=== PATIENT | female | born 2005 | race Caucasian/White ===

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

== ENCOUNTER 2024-06-04 11:38 | Emergency (ER) | payer MEDICAID, SELFPAY ==
--- NOTE | 2024-06-04 11:30 | ECG_ITS ---
[facility] Test Date: 2024-06-04 Pat Name: Crys Keane Department: Room: Gender: Female Utilization Specialist: : 2005 Requested By: Melanie Rahman Order Number: [id number] Tafoya MD: Lin Mcguire M.D. Measurements Intervals [place] Rate: 75 P: 44 [place]: 188 QRS: 87 QRSD: 85 T: 60 QT: 379 QTc: 424 Interpretive Statements SINUS RHYTHM Compared to ECG 12/28/2022 16:09:10 Sinus bradycardia no longer present Electronically Signed On 06-05-2024 9:05:36 CDT by Lin Mcguire M.D. [email or web address]ar[facility] hospitalSteamsharp [email or web address]/[id number] f
[2024-06-04 11:43] VITALS: BP 118/63; PULSE 58; RESP 16; TEMP 36.8; O2SAT 100; BMI 21.7
--- NOTE | 2024-06-04 11:58 | W.ED.SEIZURE ---
HPI - Seizure General: Chief Complaint: Seizure Stated Complaint: Seizures Time Seen by Provider: 06/04/24 11:39 History of Present Illness: HPI Narrative: 18-year-old female with history of seizures who presents the emergency room after having a seizure today. She does not remember the seizure. She says it happened like it usually does. She will have a memory of a dream and then she will have a seizure. Sounds like she has some sort of aura. She has no pain at this point. She is completely awake alert and oriented. She says she has been taking her Keppra as directed. No fevers. No cough. No chest pain. No abdominal pain. No nausea or vomiting. Related Data Home Medications Medication Instructions Recorded Confirmed escitalopram oxalate 10 mg tablet 10 mg PO DAILY 12/28/22 12/28/22 Allergies Allergy/AdvReac Type Severity Reaction Status Date / Time No Known Allergies Allergy Verified 12/28/22 16:20 Review of Systems Narrative: Constitutional symptoms: Negative except as documented in HPI. Skin symptoms: Negative except as documented in HPI. Eye symptoms: Negative except as documented in HPI. ENMT symptoms: Negative except as documented in HPI. Respiratory symptoms: Negative except as documented in HPI. Cardiovascular symptoms: Negative except as documented in HPI. Gastrointestinal symptoms: Negative except as documented in HPI. Genitourinary symptoms: Negative except as documented in HPI. Musculoskeletal symptoms: Negative except as documented in HPI. Neurologic symptoms: Negative except as documented in HPI. Psychiatric symptoms: Negative except as documented in HPI. Endocrine symptoms: Negative except as documented in HPI. [facility] ED PFSH: Medical History Anxiety Bradycardia Depression Surgical History No significant past surgical history Physical Exam Narrative: EXAM NARRATIVE: General: Alert, no acute distress. Skin: Warm, dry. Head: Normocephalic, atraumatic. Neck: Supple, trachea midline. Eye: Extraocular movements are intact. Ears, nose, mouth and throat: mucosa moist. Cardiovascular: Regular, Normal peripheral perfusion. Respiratory: Lungs are clear to auscultation, respirations are non-labored, breath sounds are equal, Symmetrical chest wall expansion. Gastrointestinal: Soft, Nontender, Non distended Musculoskeletal: Normal ROM, no deformity. Neurological: Alert and oriented, No focal neurological deficit observed. Psychiatric: Cooperative, appropriate mood & affect. Course Vital Signs: Vital signs: Vital Signs Temperature 98.3 F 06/04/24 11:43 Pulse Rate 68 06/04/24 12:25 Respiratory Rate 16 06/04/24 11:43 Blood Pressure 94/64 06/04/24 12:25 Pulse Oximetry 100 06/04/24 12:25 Oxygen Delivery Me thod Room Air 06/04/24 12:25 MDM - Seizure MDM Narrative Medical decision making narrative: Medical decision making: Differential diagnosis for this patient with a complaint of seizure like activity would include but not be limited to, and based on the above HPI, review of systems and physical exam: seizure, DT's, alcohol withdrawal, brain malignancy, pseudo-seizure, syncope. Orders placed to evaluate differential diagnosis based on the above differential, HPI and physical exam Lab Review: Laboratory results were reviewed and interpreted by myself the emergency room physician Lab work is fairly unremarkable. No leukocytosis. No anemia. No renal failure. Lactate is mildly elevated at 3 which would indicate she did have an actual tonic-clonic seizure. I reviewed the patient's medical record. Reexamination: Patient remained stable. No increased work of breathing. No altered mental status. No focal motor deficits. Assessment and plan: Seizure ?1 g IV Keppra in the emergency room. - Discharged home - Discussed plan with patient. Answered any questions. - Evaluation and treatment of this problem were appropriate in the emergency setting. Lab Data 06/04/24 11:56 06/04/24 11:56 Labs: Laboratory Results WBC 6.64 10^3/uL (4.5-13.0) 06/04/24 11:56 RBC 4.63 10^6/uL (3.85-5.65) 06/04/24 11:56 Hgb 13.10 g/dL (12.4-14.8) 06/04/24 11:56 Hct 40.2 % (36-47) 06/04/24 11:56 MCV 86.8 fl (85-98) 06/04/24 11:56 MCH 28.3 pg (27-33) 06/04/24 11:56 MCHC 32.6 g/dL (30-55) 06/04/24 11:56 RDW 13.4 % (12.1-15.1) 06/04/24 11:56 Plt Count 308 10^3/cmm (157-399) 06/04/24 11:56 MPV 11.5 fL (7.4-10.4) H 06/04/24 11:56 Neut % (Auto) 73.4 % 06/04/24 11:56 Lymph % (Auto) 15.2 % 06/04/24 11:56 [place] % (Auto) 8.0 % 06/04/24 11:56 Eos % (Auto) 2.3 % 06/04/24 11:56 Baso % (Auto) 0.6 % 06/04/24 11:56 Neut # (Auto) 4.88 10^3/uL (1.8-8.0) 06/04/24 11:56 Lymph # (Auto) 1.0 10^3/uL (1.5-6.5) L 06/04/24 11:56 [place] # (Auto) 0.5 10^3/uL (0.2-0.9) 06/04/24 11:56 Eos # (Auto) 0.2 10^3/uL (0.0-0.8) 06/04/24 11:56 Baso # (Auto) 0.0 10^3/uL (0.0-0.1) 06/04/24 11:56 Nucleated RBC % (auto) 0 % 06/04/24 11:56 Nucleated RBCs # 0.0 /100WBC 06/04/24 11:56 Sodium 138 mmol/L (136-145) 06/04/24 11:56 Potassium 4.2 mmol/L (3.5-5.1) 06/04/24 11:56 Chloride 106 mmol/L (98-107) 06/04/24 11:56 Carbon Dioxide 21 mmol/L (22-29) L 06/04/24 11:56 Anion Gap 15.2 (5-19) 06/04/24 11:56 BUN 9 mg/dL (6-20) 06/04/24 11:56 Creatinine 0.8 mg/dL (0.5-0.9) 06/04/24 11:56 GFR Calculation 92.4 mL/min (90-130) 06/04/24 11:56 Glucose 62 mg/dL (65-115) L 06/04/24 11:56 Calculated Osmolality 283 mOsm/kg (285-295) L 06/04/24 11:56 Lactic Acid 3.3 mmol/L (0.5-2.2) H 06/04/24 11:56 Calcium 9.1 mg/dL (8.5-10.5) 06/04/24 11:56 Total Bilirubin 0.2 mg/dL (0.15-1.2) 06/04/24 11:56 AST 14 U/L (0-32) 06/04/24 11:56 ALT 7 U/L (0-33) 06/04/24 11:56 Alkaline Phosphatase 56 U/L (35-105) 06/04/24 11:56 Total Protein 6.9 g/dL (6.6-8.7) 06/04/24 11:56 Albumin 4.4 g/dL (3.5-5.2) 06/04/24 11:56 Globulin 2.5 g/dL (1.3-4.6) 06/04/24 11:56 HCG, Qual Negative (Negative) 06/04/24 11:56 No radiology studies performed this visit Discharge Plan Discharge Patient Disposition: Home Clinical Impression: Epileptic seizure Condition: Stable Prescriptions: No Action escitalopram oxalate 10 mg tablet 10 mg PO DAILY Discharge Orders: Discharge ED (Routine); Ordered 06/04/24 Ordered By: Melanie Jacobsen Discharge Diet: Usual diet Discharge Activity: Increase activity as tolerated Patient Instructions: Opioid Safety, Pain Management Activity Restrictions/Additional Instructions: No driving until you are cleared by a neurologist. Thank you for choosing [facility] for your healthcare needs today. Please realize this is an emergency room and that we are providing you with a medical screening exam and this may not be complete and all inclusive of all the testing and or work up that you may need to determine your ailment or severity of your illness. You have been screened and evaluated and felt safe for discharge. Health conditions do change or evolve sometimes and as such it is important that you follow up with your Primary Doctor to be re checked, 3-5 days is a general good time frame for follow up. You are always welcome to return to the ED for re assessment if your symptoms are worsening or you have new concerns Coding Level of Care Code ED Director Of Content Marketing for Bryn Day
[2024-06-04 12:04] LABS: Basophils % 0.6 %; Eosinophils # 0.2 10^3/uL (0.0-0.8); Eosinophils % 2.3 %; Hematocrit 40.2 % (36-47); Lymphocytes % 15.2 %; Mean Corpuscular HGB Conc 32.6 g/dL (30-55); Mean Corpuscular Hemoglobin 28.3 pg (27-33); Mean Corpuscular Volume 86.8 fl (85-98); Mean Platelet Volume 11.5 fL (7.4-10.4); Monocytes # 0.5 10^3/uL (0.2-0.9); Neutrophils # 4.88 10^3/uL (1.8-8.0); Neutrophils % 73.4 %; Nucleated Red Blood Cells % 0 %; Platelet Count 308 10^3/cmm (157-399); Red Blood Count 4.63 10^6/uL (3.85-5.65); Red Cell Distribution Width 13.4 % (12.1-15.1); White Blood Count 6.64 10^3/uL (4.5-13.0)
[2024-06-04] MEDS: levETIRAcetam 1,000 MG/100 ML PREMIX 400 MG IV (12:17)
[2024-06-04 12:22] LABS: Alanine Aminotransferase 7 U/L (0-33); Albumin Level 4.4 g/dL (3.5-5.2); Alkaline Phosphatase 56 U/L (35-105); Anion Gap 15.2 (5-19); Aspartate Amino Transferase 14 U/L (0-32); Blood Urea Nitrogen 9 mg/dL (6-20); Calcium 9.1 mg/dL (8.5-10.5); Carbon Dioxide 21 mmol/L (22-29); Chloride 106 mmol/L (98-107); Creatinine Clr Calc Pharmacy 95.9876; Globulin 2.5 g/dL (1.3-4.6); Glomerular Filtration Rate 92.4 mL/min (90-130); Glucose 62 mg/dL (65-115); Osmolality Calculated 283 mOsm/kg (285-295); Potassium 4.2 mmol/L (3.5-5.1); Sodium 138 mmol/L (136-145); Total Bilirubin 0.2 mg/dL (0.15-1.2); Total Protein 6.9 g/dL (6.6-8.7)
[2024-06-04 12:23] LABS: Lactic Sepsis W/Reflex 3.3 mmol/L (0.5-2.2)
[2024-06-04 12:25] VITALS: BP 94/64; PULSE 68; O2SAT 100
[2024-06-04 12:28] LABS: HCG, Serum Qual Negative (Negative)
[2024-06-04 12:49] VITALS: BP 122/58; PULSE 58; O2SAT 100
[2024-06-04 13:51] LABS: Reflex Lactate Order REFLEX LACTIC ORDERD
== END 2024-06-04 12:51 | disposition home or self-care (01) ==
PROVIDERS: Emergency Provider Emergency Medicine
DX: G40.909 Epilepsy, unspecified, not intractable, without status epilepticus (principal)
CPT/HCPCS: 36415; 80053; 83605; 84703; 85025; 93005; 96374; 99284; J1953